=== PATIENT | male | born 1945 | race Caucasian/White ===

== ENCOUNTER 2020-11-25 07:57 | Observation (INO) | payer BC, MEDICARE ==
[~2020-11-25] VITALS: Ht 172.7 cm; Wt 87.0 kg
[~2020-11-25 07:57] MED LIST: DESYREL 50MG50 MG PO; NORCO 325 MG-51 TAB PO; OXYCONTIN 20MG20 MG PO; PRILOSEC 20MG20 MG PO
[2020-11-25 09:01] LABS: BASO % 0.4 % (0.0-2.0); EOS % 0.3 % (0-4.0); GRAN # 7.7 (1.4-6.5); GRAN % 77.5 % (42.2-75.2); HEMATOCRIT 43.5 % (42.0-52.0); HEMOGLOBIN 14.6 g/dl (13.5-18.0); LYMPH # 1.3 (1.2-3.4); LYMPH % 13.4 % (20.0-51.0); MEAN CELL VOLUME 90 fl (80.0-100.0); MEAN CORPUSCULAR HEMOGLOBIN 30 pg (27.0-31.0); MEAN CORPUSCULAR HGB CONC 34 g/dl (33.0-37.0); MEAN PLATELET VOLUME 10.3 fl (7.4-10.4); MONO # 0.8 (0.1-0.6); MONO % 7.8 % (1.7-9.3); PLATELET COUNT 223 K/mm3 (130-400); RED BLOOD COUNT 4.81 M/mm3 (4.20-5.60)
[2020-11-25 09:11] LABS: ALANINE AMINOTRANSFERASE 714 U/L (4-49); ALBUMIN 4.1 gm/dL (3.5-5.0); ALKALINE PHOSPHATASE 267 U/L (50-136); ANION GAP 8 mmol/L (7-16); AST,SGOT 435 U/L (15-37); BILIRUBIN,TOTAL 4.6 mg/dL (0.0-1.0); BLOOD UREA NITROGEN 20 mg/dL (9-20); CALCIUM 9.5 mg/dL (8.4-10.2); CARBON DIOXIDE 28 mmol/L (22-30); CHLORIDE 101 mmol/L (98-107); CREATININE, serum 1.27 (0.66-1.25); GLUCOSE 122 mg/dL (74-106); LIPASE 207 U/L (23-300); POTASSIUM 3.7 mmol/L (3.4-5.0); SODIUM 137 mmol/L (137-145); TOTAL PROTEIN 7.3 gm/dL (6.4-8.2)
[2020-11-25 09:22] LABS: TROPONIN-I < 0.012 ng/mL (0.000-0.035)
[2020-11-25 10:11] LABS: ACETAMINOPHEN < 10 ug/mL (10-30); ALCOHOL(ethanol),MEDICAL < 10 mg/dL
[2020-11-25 10:48] LABS: INR 1.1 (0.8-3.0); PROTHROMBIN TIME 12.1 SECONDS (9.7-12.8)
[2020-11-25 17:08] VITALS: BP 132/68; PULSE 75; TEMP 98.8
[2020-11-25 19:15] VITALS: BP 109/44; PULSE 71; TEMP 98.9
--- NOTE | 2020-11-25 20:00 | NUR ---
Patient is resting in bed with the eyes closed. He indicates is tired. He is alert and orientd x 4. VSS, denies nausea, vomiting or pain. NS infusing at 100 ml/hr. He mentioned he had a bowel movement with not blood. Assessment completed, meds provided. He understands to be NPO for procedure in the morning. Consent signed. No further needs at this time. Call light within reach.
[2020-11-25 23:36] VITALS: BP 109/52; PULSE 80; TEMP 99.2
[2020-11-26] VITALS (10 sets, daily range): BP systolic 104–128; BP diastolic 52–87; PULSE 62–74; TEMP 98.6–98.7
--- NOTE | 2020-11-26 06:17 | NUR ---
Patient has had a calm night. Denies abdominal pain, nausea or vomiting. No further needs at this time. Fluids running at 30 ML/HR. Shift report will be given.
[2020-11-26 06:42] LABS: BASO % 0.7 % (0.0-2.0); EOS # 0.1 (0.0-0.7); EOS % 1.5 % (0-4.0); GRAN # 3.7 (1.4-6.5); GRAN % 60.5 % (42.2-75.2); HEMATOCRIT 37.5 % (42.0-52.0); HEMOGLOBIN 12.4 g/dl (13.5-18.0); LYMPH # 1.7 (1.2-3.4); LYMPH % 28.9 % (20.0-51.0); MEAN CELL VOLUME 90 fl (80.0-100.0); MEAN CORPUSCULAR HEMOGLOBIN 30 pg (27.0-31.0); MEAN CORPUSCULAR HGB CONC 33 g/dl (33.0-37.0); MEAN PLATELET VOLUME 10.1 fl (7.4-10.4); MONO # 0.5 (0.1-0.6); MONO % 7.6 % (1.7-9.3); PLATELET COUNT 179 K/mm3 (130-400); RED BLOOD COUNT 4.17 M/mm3 (4.20-5.60); REDCELL DISTRIBUTION WIDTH-CV 13.3 % (11.5-14.5)
--- NOTE | 2020-11-26 06:51 | NUR ---
Report received from CAMRON Ingram. Pt. resting in bed, this RN introduced self, pt. appears sleepy. Call light in reach.
[2020-11-26 06:57] LABS: BILIRUBIN,TOTAL 2.1 mg/dL (0.0-1.0); CALCIUM 8.1 mg/dL (8.4-10.2); CREATININE, serum 1.09 (0.66-1.25); MAGNESIUM 2.2 mg/dL (1.6-2.3); POTASSIUM 3.7 mmol/L (3.4-5.0); TOTAL PROTEIN 5.7 gm/dL (6.4-8.2)
[2020-11-26 07:40] LABS: BILIRUBIN,DIRECT 0.4 mg/dL (0.0-0.4)
--- NOTE | 2020-11-26 08:45 | NUR ---
Pt. back from EGD procedure. Pt. alert and doing well. Pt. denies needs. Vital signs stable. Supportive Veronica at bedside.
--- NOTE | 2020-11-26 10:32 | NUR ---
Initial visit; Patient thanked Scouring Machine Tender for looking in on him and offering encouragement and God's blessings.
[2020-11-26] MEDS ORDERED: PROTONIX 40MG T40 MG PO (13:24)
[2020-11-26] MEDS ORDERED: THORAZINE 225 MG/TAB PO (13:25)
--- NOTE | 2020-11-26 14:47 | NUR ---
CARMELLA met with the patient and his , Veronica (ph#[phone]), to discuss discharge plan. The patient lives in [place] with his , Veronica. He reports independence with ADLs and has a cane and walker available, if needed. The patient's PCP is Dr. Cat Urban and he receives his medications from [facility]. He reports no difficulties obtaining his meds. The patient does not have a DPOA-HC, but he was interested in obtaining a form. CARMELLA provided. The patient plans to return home with his upon discharge. No additional needs at this time.
--- NOTE | 2020-11-26 15:06 | NUR ---
Pt.'s plan of care entails discharge home, following up with GI, PCP, and general surgery. Pt. agreeable to picker tender prescriptions at [facility]. This RN and community service worker Liz are working on getting the pt. set up with a new primary care doctor to follow up with. Pt. verbalized understanding and agreeable to getting lab work on 12/02/20 as well as the plan for pt. to get his gallbladder removed on 12/05/20.
== END 2020-11-26 16:20 | disposition home or self-care (01) ==
LOC: COL.ER 07:57 → MEDICAL 10:39 → COL.ER 10:39 → MEDICAL 10:39
PROVIDERS: Emergency Medicine; ADMIT Internal Medicine
DX: K31.7 Polyp of stomach and duodenum (principal); K44.9 Diaphragmatic hernia without obstruction or gangrene; K21.01 Gastro-esophageal reflux disease with esophagitis, with bleeding; K22.11 Ulcer of esophagus with bleeding; R10.13 Epigastric pain; K80.20 Calculus of gallbladder without cholecystitis without obstruction; R06.6 Hiccough; R74.01 Elevation of levels of liver transaminase levels; Z79.899 Other long term (current) drug therapy
CPT/HCPCS: 99222-AI; 99232-AI; 99239; C9113; G0378; J2543; J2704; J3230; J7030; Q9967

== ENCOUNTER → 2020-12-02 | Outpatient (CLI) | payer BC ==
[~2020-12-02] MED LIST changes: +COLACE 100100 MG/CAP PO; +MOTRIN 600600 MG/TAB PO; +PROTONIX 40MG T40 MG PO; +THORAZINE 225 MG/TAB PO
[2020-12-02 11:30] LABS: HEMATOCRIT 43.3 % (42.0-52.0); HEMOGLOBIN 14.5 g/dl (13.5-18.0); MEAN CELL VOLUME 90 fl (80.0-100.0); MEAN CORPUSCULAR HEMOGLOBIN 30 pg (27.0-31.0); MEAN CORPUSCULAR HGB CONC 34 g/dl (33.0-37.0); PLATELET COUNT 293 K/mm3 (130-400); RED BLOOD COUNT 4.81 M/mm3 (4.20-5.60); REDCELL DISTRIBUTION WIDTH-CV 12.7 % (11.5-14.5)
[2020-12-02 11:37] LABS: ALBUMIN 4.4 gm/dL (3.5-5.0); CALCIUM 9.4 mg/dL (8.4-10.2); CREATININE, serum 1.26 (0.66-1.25); POTASSIUM 4.5 mmol/L (3.4-5.0); TOTAL PROTEIN 7.7 gm/dL (6.4-8.2)
== END ==
LOC: COL.LAB 10:11
DX: K82.8 Other specified diseases of gallbladder (principal); R74.01 Elevation of levels of liver transaminase levels

== ENCOUNTER 2020-12-05 10:23 | Day surgery (SDC) | payer BC ==
[~2020-12-05] VITALS: Ht 169.5 cm; Wt 88.0 kg
[~2020-12-05 10:23] MED LIST changes: -COLACE 100100 MG/CAP PO; -MOTRIN 600600 MG/TAB PO
[2020-12-05 11:54] VITALS: BP 126/78; PULSE 67; TEMP 98
[2020-12-05 16:25] VITALS: BP 133/67; PULSE 86; TEMP 97.4
--- NOTE | 2020-12-05 16:25 | NUR ---
Pt returned to bay 3 via cart. Drowsy, wakes easily to name. Postop vitals started. Tea, crackers, water and jello provided. brought to bedside.
[2020-12-05 16:40] VITALS: BP 123/68; PULSE 84
--- NOTE | 2020-12-05 16:40 | NUR ---
Patient resting high fowlers in bed. Drowsy, wakes easily to name. Vitals stable. Patient request to sleep.
[2020-12-05 16:55] VITALS: BP 135/64; PULSE 82
--- NOTE | 2020-12-05 16:55 | NUR ---
Patient resting high fowlers in bed. Drowsy, wakes easily to name. Tolerating drink well.
[2020-12-05] MEDS ORDERED: MOTRIN 600600 MG/TAB PO (16:59)
[2020-12-05 17:00] VITALS: BP 130/69; PULSE 81
[2020-12-05] MEDS ORDERED: NORCO 325 MG-51 TAB PO (17:00)
[2020-12-05] MEDS ORDERED: COLACE 100100 MG/CAP PO (17:00)
--- NOTE | 2020-12-05 17:00 | NUR ---
Patient resting high fowlers in bed. Drowsy, wakes easily to name . Tolerating food and drink well.
--- NOTE | 2020-12-05 17:30 | NUR ---
Patient tolerating food and drink well. Alert and oriented. Discontinued IV with nop complications. Reviewed discharge instructions with patient, verbalized understanding. Patient up to restroom, able to void without difficulty. Patient reports feeling "a little off", reported to nurse that will complete discharge with patient.
--- NOTE | 2020-12-05 18:07 | NUR ---
1730: TOOK OVER CARE OF PATIENT. PATIENT REPORTS DOING WELL JUST VERY TIRED. 1745: ASSISTED PATIENT IN GETTING DRESSED. PATIENT DOING WELL DENIES NAUSEA/VOMITING. STATING MINIMAL AMOUNT OF DISCOMFORT FOLLOWING SURGERY THAT IS MANAGABLE. 1800: ESCORTED PATIENT AND TO EMERGENCY ROOM ENTRANCE AND ASSISTED PATIENT INTO HIS CAR.
== END 2020-12-05 18:05 | disposition home or self-care (01) ==
LOC: SDCO 10:23
DX: K80.10 Calculus of gallbladder with chronic cholecystitis without obstruction (principal); K21.9 Gastro-esophageal reflux disease without esophagitis; Z20.822 Contact with and (suspected) exposure to COVID-19; Z79.899 Other long term (current) drug therapy; Z90.89 Acquired absence of other organs
CPT/HCPCS: J0690; J1100; J1885; J2405; J2704; J3010; J7120; Q9967